=== PATIENT | male | born 1965 | race Caucasian/White ===

== ENCOUNTER 2016-12-02 21:19 | Emergency (ER) | payer BC ==
--- NOTE | 2016-12-02 21:57 | EDM.PDOC ---
ED HPI GENERAL MEDICAL PROBLEM - General Chief Complaint: ENT Problem Stated Complaint: Right ear pain Time Seen by Provider: 12/02/16 21:45 Source of Information: Reports: Patient, RN Notes Reviewed History Limitations: Reports: No Limitations - History of Present Illness INITIAL COMMENTS - FREE TEXT/NARRATIVE: 51 year old male presents to the Ed with 2-3 day history of right ear discomfort. He feels that he may have wax buildup in his ear. He denies pain with pulling on the ear. He denies fever, chills, sore throat or sinus congestion. He does have seasonal allergy symptoms at times. Right Ear Pain Score (Numeric/FACES): 4 - Related Data Allergies Allergy/AdvReac Type Severity Reaction Status Date / Time No Known Allergies Allergy Verified 12/02/16 21:38 Home Meds: Home Meds . [No Known Home Meds] 12/02/16 [History] Past Medical History - Past Health History Medical/Surgical History: Denies Medical/Surgical History Social & Family History - Tobacco Use Smoking Status *Q: Never Smoker - Recreational Drug Use Recreational Drug Use: No ED ROS ENT - Review of Systems Review Of Systems: See Below Constitutional: Reports: No Symptoms. Denies: Fever, Chills HEENT: Reports: Ear Pain, Rhinitis. Denies: Ear Discharge, Nose Pain, Sinus Problem, Throat Pain Respiratory: Reports: No Symptoms. Denies: Cough ED EXAM, ENT - Physical Exam Exam: See Below Exam Limited By: No Limitations General Appearance: Alert, WD/WN, No Apparent Distress Ears: Normal External Exam, Normal Canal, Hearing Grossly Normal, TM Bulging, TM Dullness, TM Fluid (serous ). No: Auricular Ecchymosis, Mastoid Swelling, Mastoid Tenderness, Canal Blood, TM Erythema, TM Perforation, Cerumen Impaction Nose: Normal Inspection, Normal Mucousa Mouth/Throat: Normal Inspection, Normal Oropharynx Head: Atraumatic, Normocephalic Neck: Normal Inspection, Supple, Non-Tender, Full Range of Motion. No: Lymphadenopathy (L), Lymphadenopathy (R) Respiratory/Chest: No Respiratory Distress, Lungs Clear Cardiovascular: Regular Rate, Rhythm Course - Vital Signs Last Recorded V/S: Last Vital Signs Temp 98.5 F 12/02/16 21:35 Pulse 66 12/02/16 21:35 Resp 18 12/02/16 21:35 BP 132/97 H 12/02/16 21:35 Pulse Ox 100 12/02/16 21:35 - Re-Assessments/Exams Free Text/Narrative Re-Assessment/Exam: Patient has bilateral serous otitis media. Rx for Augmentin 1 tab PO BID x7 days sent to [facility] Dep[facility] - Departure Time of Disposition: 21:55 Disposition: Home, Self-Care 01 Condition: Good Clinical Impression: Serous otitis media Qualifiers: Chronicity: acute Laterality: bilateral Recurrence: not specified as recurrent Qualified Code(s): H65.03 - Acute serous otitis media, bilateral - Discharge Information Referrals: PCP,Not In Area [Primary Care Provider] - Forms: ED Department Discharge Additional Instructions: Take Claritin 10mg once a day Augmentin 1 tab twice a day for 7 days Take decongestant (sudafed) as directed on package for ear pressure and before flying Follow-up in clinic if not improved in 3-4 days
== END 2016-12-02 22:05 | disposition home or self-care (01) ==
LOC: JD.ED 21:19
DX: H65.03 Acute serous otitis media, bilateral (principal)
CPT/HCPCS: 99283